=== PATIENT | male | born 1950 | race Caucasian/White ===

== ENCOUNTER 2018-11-10 22:39 | Emergency (ER) | payer MEDICARE ==
[~2018-11-10] VITALS: Ht 170.2 cm; Wt 73.5 kg
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
[2018-11-10 23:21] VITALS: BP 113/73
== END 2018-11-10 23:45 | disposition home or self-care (01) ==
LOC: FSED 22:39
DX: H60.91 Unspecified otitis externa, right ear (principal)
CPT/HCPCS: 99283